=== PATIENT | male | born 1990 | race Caucasian/White ===

== ENCOUNTER 2019-12-19 09:15 | Outpatient (CLI) | payer BC, SELFPAY ==
--- NOTE | ~2019-12-19 | XR_ITS ---
XR finger 4th LT min 2V DATE: 12/19/2019 09:41 INDICATION: Distal phalanx fracture TECHNIQUE: 3 views of fourth digit COMPARISON: None FINDINGS: There is a minimally displaced comminuted tuft fracture of the distal phalanx. No other fracture or dislocation. No radiopaque foreign body. IMPRESSION: Minimally displaced comminuted tuft fracture of distal phalanx Reviewed, dictated and finalized at location A.
== END 2019-12-19 09:16 | disposition home or self-care (01) ==
PROVIDERS: PCP Physician Assistant Medical
DX: S62.635A Displaced fracture of distal phalanx of left ring finger, initial encounter for closed fracture (principal)
CPT/HCPCS: 73140